=== PATIENT | female | born 1975 | race Caucasian/White ===

== ENCOUNTER 2018-01-18 05:53 | Day surgery (SDC) | payer BC ==
--- NOTE | 2018-01-05 14:08 | HP ---
PREOPERATIVE HISTORY AND PHYSICAL: DATE OF ADMISSION/SURGERY: 01/18/18 DATE OF OFFICE VISIT: 01/03/18 ATTENDING SURGEON: Dr. Melyssa Hutchison.* (DICTATED BY OBDULIA NAVA) PROCEDURE: Right hip arthroscopic labral repair and osteoplasty. CHIEF COMPLAINT: Right hip pain. HISTORY OF PRESENT ILLNESS: Desi is a 42-year-old female who presents to the clinic for right hip pain due to femoral acetabular impingement and labral tear. She has failed conservative measures and has therefore agreed to undergo a right hip arthroscopic labral repair and osteoplasty with Dr. Hutchison on . PAST MEDICAL HISTORY: Denies current problems. PAST SURGICAL HISTORY: [place] teeth removal. Denies prior complications with anesthesia. MEDICATIONS: control 1 by mouth daily. ALLERGIES: No known drug allergies. FAMILY HISTORY: Positive for a history of pancreatic cancer in her mom. Denies family history of DVT or PE. SOCIAL HISTORY: She lives with her . 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 She denies tobacco use. She occasionally consumes alcohol. She exercises regularly. She is right-hand dominant. REVIEW OF SYSTEMS: A 14-point review of systems was reviewed with the patient. Positive for current complaint, otherwise negative. Denies chest pain, shortness of breath, fever, chills, history of bleeding disorder, history of DVT or PE. PHYSICAL EXAMINATION GENERAL: A 42-year-old well-developed, well-nourished female, in no acute distress. Alert and oriented x3. Appropriate mood and affect. Appropriate balance and coordination of the upper extremities. VITAL SIGNS: Height 66, weight 137, pulse 68, blood pressure 140/82, BMI 22.1. HEENT: Normocephalic, atraumatic. PERRLA. Throat clear. NECK: Supple. PULMONARY: Lungs are clear to auscultation bilaterally. No wheezing, rhonchi, or rales. CARDIO: Regular rate and rhythm. S1, S2. No murmurs, gallops, or rubs. No edema. ABDOMEN: Positive bowel sounds. Soft, nontender. NEURO: Alert and oriented x3. Cranial nerves grossly intact. Sensation intact to light touch distally. MUSCULOSKELETAL: Right lower extremity, skin is intact. No warmth or erythema. Mild tenderness to palpation laterally. Pain on deep flexion to 100 degrees. Positive FADIR, negative GEENA. No pain with log roll. Calf soft, nontender. +5/5 strength to ankle dorsiflexion and plantarflexion. +2 PT pulse. Sensation intact to light touch distally. DIAGNOSTIC STUDIES: X-rays and MRI reveal right hip labral tear and DEBORAH. PLAN: The patient is scheduled to undergo a right hip arthroscopic labral repair and osteoplasty with Dr. Hutchison on 01/18/18. She will follow up 2 weeks postop for followup and suture removal. Percocet will be used for postop pain management and naproxen for 30 days postoperatively to prevent heterotopic ossifications. OBDULIA NAVA [id number]/[facility] #: [id number] MTDD
[~2018-01-18 05:53] MED LIST: Buffered Lidocaine 0.9% SYRIN* 5 ML/SYR SYRINGE INTRADERM ONE
[2018-01-18] MEDS ORDERED: Dexamethasone IV* 4 MG/ML 1 ML (4 MG) IV SLOW PU ONE (06:00)
[2018-01-18] MEDS ORDERED: Famotidine IV* 10 MG/ML 2 ML (20 mg) IV ONE (06:00)
[2018-01-18] MEDS ORDERED: ceFAZolin 2 GM PREMIX (*) 2 GM/50 ML BAG IVPB ONE (06:08)
[2018-01-18] MEDS ORDERED: Famotidine IV* 10 MG/ML 2 ML (20 mg) ONE (06:08)
[2018-01-18] MEDS ORDERED: Dexamethasone IV* 4 MG/ML 1 ML (4 MG) ONE (06:08)
[2018-01-18] MEDS ORDERED: Ondansetron INJ* 2 MG/ML VIAL ONE (07:11)
[2018-01-18] MEDS ORDERED: Propofol* 10 MG/ML 20 ML BTL IV PUSH ONE (07:11)
[2018-01-18] MEDS ORDERED: Atracurium* 10 MG/ML 10 ML VIAL ONE (07:11)
[2018-01-18] MEDS ORDERED: Midazolam* 1 MG/ML 5 ML VIAL (5 MG) ONE (07:11)
[2018-01-18] MEDS ORDERED: fentaNYL* 50 MCG/ML 5 ML VIAL (250 MCG VIAL) ONE (07:11)
[2018-01-18] MEDS ORDERED: Lidocaine 2% PF * 5 ML VIAL ONE (07:11)
[2018-01-18] MEDS ORDERED: Ketorolac INJ* 30 MG/ML 1 ML VIAL ONE ×2 (07:11→07:21)
[2018-01-18] MEDS ORDERED: Bupivacaine 0.25% SDV PF* 10 ML VIAL INJ ONE ×2 (07:21→07:22)
[2018-01-18] MEDS ORDERED: Scopolamine 1.5 mg* PATCH TRANSDERM PRN (08:13)
[2018-01-18] MEDS ORDERED: fentaNYL* 50 MCG/ML 2 ML VIAL (100 MCG VIAL) IV PRN (08:13)
[2018-01-18] MEDS ORDERED: HYDROmorphone INJ* 0.5 MG/0.5 ML SYRINGE IV PRN (08:13)
[2018-01-18] MEDS ORDERED: Ondansetron INJ* 2 MG/ML VIAL IV PRN (08:13)
[2018-01-18] MEDS ORDERED: DiMENhydriNATE IV* 50 MG/ML VIAL IV PUSH PRN (08:13)
[2018-01-18] MEDS ORDERED: oxyCODONE/Acetamin 5/325 MG* TAB PO PRN (08:13)
[2018-01-18] MEDS ORDERED: Naloxone* 0.4 MG/ML 1 ML VIAL IV PRN (08:13)
--- NOTE | 2018-01-18 10:16 | RAD ---
INDICATION: Right hip arthroscopic labral repair. COMPARISON: Comparison is made with a prior x-ray study from January 03, 2018. TECHNIQUE: 40.9 seconds of intermittent fluoroscopic guidance were provided and 3 spot films of the right hip were obtained in the operating room. FINDINGS: The films of the right hip demonstrates surgical instruments which project over the lateral aspect of the hip. IMPRESSION: INTRAOPERATIVE CONTROL FILMS. CPT II Codes: G9500
[2018-01-18] MEDS ORDERED: oxyCODONE/Acetamin 5/325 MG* TAB ONE (10:18)
[2018-01-18] MEDS ORDERED: fentaNYL* 50 MCG/ML 2 ML VIAL (100 MCG VIAL) ONE (10:30)
[2018-01-18 11:19] VITALS: BP 127/93
--- NOTE | 2018-01-19 04:24 | OP ---
CC: PCP, OBDULIA Riley* DATE OF OPERATION: 01/18/18 - SDS DATE OF : 77 ATTENDING SURGEON: Melyssa Hutchison MD AIR POLLUTION CONTROL ENGINEER: OBDULIA Vang ANESTHESIOLOGIST: Dr. Herrera. ANESTHESIA: General. 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 OPERATIVE PROCEDURE: 1. Right hip arthroscopy with labral debridement. 2. Cam osteoplasty. 3. Pincer osteoplasty. COMPLICATIONS: None. ESTIMATED BLOOD LOSS: Minimal. TRACTION TIME: 49 minutes. INDICATIONS: Desi Azul is a 42-year-old female with persistent right hip pain that has been going for almost a year. 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 She has a deep sharp aching pain. 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 She responded to an injection. Risks and benefits were discussed at length to include, but not limited to bleeding, infection, damage to nerves, vessels, surrounding structures, wound nonhealing, persistent pain, need for surgery, scarring, stiffness, incomplete relief of symptoms, fracture, AVN, heterotopic ossification, risk of DVT, and risk of anesthesia. FINDINGS: The traction provided good access to the hip without evidence of underlying hyperlaxity. The arthroscopic exam showed some labral tearing from the 10 o'clock to 2 o'clock position with an unstable flap and a wave sign. There were other areas where there were grade 1 and 2 changes of the acetabulum , but most of the acetabulum had grade 0 to 1 changes. There was a small area of chondrosis along the femoral head, grade 2 changes, the remainder of the head with grade 0 to 1 changes. DESCRIPTION OF PROCEDURE: The patient was greeted in the preoperative area by the attending surgeon. Correct extremity was marked, consent was confirmed. RAFAEL stockings were placed on the nonoperative leg. The patient was brought back to the operating suite where she was placed in a supine position on the operating room table. She then underwent general anesthesia and endotracheal intubation after which she was placed in a well-padded boots and positioned in the [employer]hew traction table with a large well-padded perineal post. The operative leg was then placed in a dynamic leg alcala and placed with slight flexion, gentle internal rotation, neutral adduction to bring the femoral neck parallel to the floor. This was after gentle traction was applied to the left hip to balance the pelvis. The right hip was then prepped and draped in the usual sterile fashion beginning with Chlorhexidine soap and alcohol wipe. After a miniature surgical pause, gross traction was applied to the operative extremity. Under sterile conditions, an 18-gauge needle was used to break the acetabular seal. Once this was done, traction was applied to help distract the hip joint to about 1.5 cm, which was appreciated using C-arm. The patient was protected with lead during the entirety of the case. The traction was then taken down, once the seal was broken. The right hip was then prepped and draped with the final prep of ChloraPrep. After appropriate surgical pause indicating site, side, procedure, and administration of antibiotics, the traction was brought up and the timer began. Total traction time of 49 minutes. First, the anterolateral peritrochanteric portal was accessed using a long spinal needle, which was confirmed under fluoroscopy, then the cannula was introduced atraumatically into the joint. An anterior portal was then made in a similar fashion using needle for localization. Once this was confirmed, the trocar was then advanced atraumatically into the joint. The 70-degree scope was then used to identify the labrum and the femoral head. The femoral and acetabulum had changes listed as above. No portal violated the labrum. A capsulotomy was then began anteriorly and then connecting laterally using a dry creek blade. The pump was set to 40 mmHg to provide stable consistent pressure throughout the entirety of the case. After the capsulotomy was made, attention was directed to the synovectomy. Synovectomy was carried out using small radius shaver as well as electrocautery for hemostasis. There was abundant synovitis present. The rim of the acetabulum was carefully visualized and there was a labral tear that was evident. Once the rim was exposed all the way to the AIIS, the capsular reflexion was reflected back. The electrocautery device was used to expose the rim and the 5.5 mm round jesus was then used to rim trimming. Labrum was also carefully released using the dry creek blade, but this was found to be very small and poor quality tissue, decision was made to debride this. This was debrided back using the shaver. This helped to eliminate the subluxation of the labral tear. The jesus was then used to finish rim trimming and the pincer deformity was removed, resected, crossover sign was removed, which was determined by preoperative templating the images. This was confirmed with fluoroscopy. Once the debridement and rim trimming was completed, attention was directed to the femoral head. At this point, the traction was taken down. This was confirmed via x-ray and arthroscopically. A capsulotomy was then T'd to allow for exposure of the cam lesion, which was quite large. Preoperative templating was used as a guide for femoral neck osteoplasty first using the electrocautery device to jaswant at the edges of the resection, a 5.5 mm round jesus was then used to take out the cam lesion. This began superiorly, the lateral and inferior to medially. This was monitored using C-arm to make sure elimination of the femoral side of the impingement as possible. Femoral head and neck angle were normalized. Care was taken to prevent iatrogenic injury to the vessels. Postresection dynamic testing was done under direct visualization arthroscopically to make sure the cam was removed. At this point, meticulous hemostasis was obtained. Fluid was evacuated from the soft tissues. The spinal needle was placed under arthroscopic visualization for later injection. The wounds were copiously irrigated and closed with 2-0 Vicryl and 3-0 nylon. The portals were injected with 0.25% Marcaine plain. Toradol was injected intra -articularly into the joint. Sterile dressings were applied as well as thigh- high RAFAEL stocking and a Cryo/Cuff. She was awoken from anesthesia and transferred to PACU in stable condition. POSTOPERATIVE PLAN: She will be 50% weightbearing for 2 weeks. No hip flexion past 90 degrees during that time. RAFAEL stockings will be worn as well for that 2 weeks. She will remove dressings on postop day 3. DVT prophylaxis considered , but deferred due to no previous personal or family history. She will be discharged on pain medications as well as naproxen 500 mg p.o. b.i.d. for 30 days for HO prophylaxis. I will see the patient back in 10 to 14 days with repeat x-rays of the hip including a [place] lateral. [id number]/[facility] #: [id number] [facility]
== END 2018-01-18 11:45 | disposition home or self-care (01) ==
LOC: OR 05:53
PROVIDERS: ATTEND Orthopaedic Surgery
DX: S73.191A Other sprain of right hip, initial encounter (principal); M24.851 Other specific joint derangements of right hip, not elsewhere classified; M16.11 Unilateral primary osteoarthritis, right hip; X58.XXXA Exposure to other specified factors, initial encounter; Y92.9 Unspecified place or not applicable
CPT/HCPCS: 76001; 81025; A9270-GY; J0690; J1100; J1885; J2250; J2405; J2704; J3010; J3490

== ENCOUNTER 2022-07-06 06:52 | Observation (INO) ==
[2022-07-06] MEDS ORDERED: fentaNYL 100 mcg/2 ml 50 MCG/ML VIAL ONE (08:05)
[2022-07-06] MEDS ORDERED: Midazolam 5 mg/5 ml VIAL 1 mg/ml 5 ml VIAL (5 mg) ONE (08:05)
[2022-07-06] MEDS ORDERED: Lidocaine 1% MPF 5 ML VIAL ONE (08:06)
[2022-07-06] MEDS ORDERED: Heparin 2 UNITS/ML 1000 mls 2,000 ML IV ONE (08:06)
[2022-07-06] MEDS ORDERED: VERAPAMIL 2.5 MG/ML 2 ML VIAL ** 5 mg/2 ml ONE (08:06)
[2022-07-06] MEDS ORDERED: Iohexol 350 (CONTRAST) 100 ML PAK IV ONE (08:06)
[2022-07-06] MEDS ORDERED: nitroGLYCERIN DRIP 25,000 MCG/250 ML BTL ONE (08:06)
[2022-07-06] MEDS ORDERED: Heparin 1,000 UNIT/ML 10 ml (10,000 UNITS) CATHLAB/DIALYSIS ONE (08:06)
[2022-07-06] MEDS ORDERED: Bivalirudin 250 MG VIAL ONE (08:50)
[2022-07-06] MEDS ORDERED: Heparin 2 UNITS/ML 1000 mls 1,000 ML IV ONE (09:04)
[2022-07-06] MEDS ORDERED: Phenylephrine 40 mcg/mL 10mL (400mcg) SYRINGE ONE (09:34)
[2022-07-06] MEDS ORDERED: NS 0.9% 1000 ml BAG 1,000 ML IV SCH (10:00)
[2022-07-07] MEDS ORDERED: Aspirin EC 81 mg TAB.EC (enteric coated) PO SCH (09:00)
[2022-07-07 10:07] VITALS: BP 131/96
== END 2022-07-07 11:00 | disposition home or self-care (01) ==
LOC: CHICATH 06:52 → INTOOBSV 09:56 → ICU 09:56
PROVIDERS: ADMIT Specialist; ATTEND Specialist